=== PATIENT | female | born 1975 | race Two or more races ===

== ENCOUNTER 2023-12-15 22:28 | Emergency (ER) | payer OTHER ==
[2023-12-15 22:38] VITALS: BMI 25.4
[2023-12-15] MEDS ORDERED: ACETAMINOPHEN 500 MG TABLET (FP) ONE (23:38)
[2023-12-15] MEDS: ACETAMINOPHEN 500 MG TABLET (FP) PO ONE (23:46)
[2023-12-16] MEDS ORDERED: LIDOCAINE 5% TOPICAL PATCH ONE (01:08)
[2023-12-16] MEDS ORDERED: METHOCARBAMOL 500 MG TABLET ONE (01:08)
[2023-12-16] MEDS: METHOCARBAMOL 500 MG TABLET PO ONE (01:19)
[2023-12-16] MEDS: LIDOCAINE 5% TOPICAL PATCH TP ONE (01:19)
[2023-12-16 03:42] VITALS: BP 132/82; PULSE 75; RESP 18; TEMP 97.8
== END 2023-12-16 03:42 | disposition home or self-care (01) ==
LOC: JER 22:28
DX: R51.9 Headache, unspecified (principal); M54.2 Cervicalgia; R20.0 Anesthesia of skin; R29.898 Other symptoms and signs involving the musculoskeletal system; V43.62XA Car passenger injured in collision with other type car in traffic accident, initial encounter
CPT/HCPCS: 70450-TC; 72125-TC; 99284-25